=== PATIENT | female | born 1945 | race Caucasian/White ===

== ENCOUNTER → 2022-05-31 15:13 | Outpatient (BNVA) | payer MEDICARE, BC, SELFPAY | PROVIDERS: Visit Provider Nurse Practitioner Family | DX: R82.90 Unspecified abnormal findings in urine (principal); N30.00 Acute cystitis without hematuria | CPT/HCPCS: 81000 ==

== ENCOUNTER 2022-06-10 11:39 | Outpatient (CLI) | payer MEDICARE, BC, SELFPAY ==
--- NOTE | 2022-06-10 11:54 | XR_ITS ---
WS: [id number] EXAMINATION: XR sacrum coccyx min 2V [id number] REASON FOR EXAM: back pain COMPARISON: None available. ORDER DATE: 06/10/2022 12:06 PM FINDINGS: There is a sclerotic change in the mid SI joints bilaterally slightly greater on the right Hip joints are unremarkable bilaterally. XR/XR sacrum coccyx min 2V [id number] IMPRESSION: No acute abnormality.
--- NOTE | 2022-06-10 11:54 | XR_ITS ---
WS: [id number] EXAMINATION: XR hip RT 2-3V wo/w pel* [id number] REASON FOR EXAM: hip pain COMPARISON: None available. ORDER DATE: 06/10/2022 12:06 PM TECHNIQUE: Frontal internal/external rotation views of the right hip were obtained. X-RAY FINDINGS: There are no fractures or dislocations. Normal motion with internal/external rotation is present. No degenerative changes. XR/XR hip RT 2-3V wo/w pel* [id number] IMPRESSION: 1. No fractures or dislocations of the right hip. 2. Normal motion with internal/external rotation.
== END 2022-06-10 11:40 | disposition home or self-care (01) ==
LOC: RAD 11:46
PROVIDERS: PCP Family Medicine; Visit Provider Family Medicine
DX: M25.551 Pain in right hip (principal)
CPT/HCPCS: 72220; 73502; 81000; J1040

== ENCOUNTER → 2022-07-29 11:20 | Outpatient (BNVA) | payer MEDICARE, BC, SELFPAY | PROVIDERS: PCP Family Medicine; Visit Provider Family Medicine | DX: M25.551 Pain in right hip (principal); I10 Essential (primary) hypertension; E78.5 Hyperlipidemia, unspecified; M81.0 Age-related osteoporosis without current pathological fracture | CPT/HCPCS: 80053; 80061; 85025 ==

== ENCOUNTER → 2022-09-27 10:13 | Outpatient (BNVA) | payer MEDICARE, BC, SELFPAY | PROVIDERS: PCP Family Medicine; Referring Provider Family Medicine; Visit Provider Student in an Organized Health Care Education/Training Program | DX: M70.61 Trochanteric bursitis, right hip (principal) | CPT/HCPCS: 20610; 99203; J3301; J3490 ==

== ENCOUNTER → 2022-12-21 10:52 | Outpatient (BNVA) | payer MEDICARE, BC, SELFPAY | PROVIDERS: PCP Family Medicine; Visit Provider Student in an Organized Health Care Education/Training Program | DX: M70.61 Trochanteric bursitis, right hip | CPT/HCPCS: 20610; 73502; 99213; J3301; J3490 ==

== ENCOUNTER → 2023-01-27 11:17 | Outpatient (BNVA) | payer MEDICARE, BC, SELFPAY | PROVIDERS: PCP Family Medicine; Visit Provider Family Medicine | DX: R63.4 Abnormal weight loss (principal); M81.0 Age-related osteoporosis without current pathological fracture; I10 Essential (primary) hypertension; E78.5 Hyperlipidemia, unspecified; M25.551 Pain in right hip | CPT/HCPCS: 80053; 84443; 85025; 86140 ==

== ENCOUNTER → 2023-04-07 09:48 | Outpatient (BNVA) | payer MEDICARE, BC, SELFPAY | PROVIDERS: PCP Family Medicine; Visit Provider Student in an Organized Health Care Education/Training Program | DX: M46.1 Sacroiliitis, not elsewhere classified; M25.551 Pain in right hip | CPT/HCPCS: 99213 ==

== ENCOUNTER → 2023-05-10 09:21 | Outpatient (BNVA) | payer MEDICARE, BC, SELFPAY | PROVIDERS: PCP Family Medicine; Visit Provider Anesthesiology Pain Medicine | DX: M53.3 Sacrococcygeal disorders, not elsewhere classified; M25.551 Pain in right hip | CPT/HCPCS: 99204 ==

== ENCOUNTER → 2023-05-18 14:12 | Outpatient (BNVA) | payer MEDICARE, BC, SELFPAY | PROVIDERS: PCP Family Medicine; Visit Provider Anesthesiology Pain Medicine | DX: M53.3 Sacrococcygeal disorders, not elsewhere classified (principal); M54.9 Dorsalgia, unspecified | CPT/HCPCS: 20553; 20610; 27096; J1030; J3490 ==

== ENCOUNTER → 2023-06-16 11:10 | Outpatient (BNVA) | payer MEDICARE, BC, SELFPAY | PROVIDERS: PCP Family Medicine; Visit Provider Anesthesiology Pain Medicine | DX: M54.16 Radiculopathy, lumbar region; M25.551 Pain in right hip; M53.3 Sacrococcygeal disorders, not elsewhere classified | CPT/HCPCS: 73502; 99214 ==

== ENCOUNTER 2023-07-13 15:01 | Outpatient (CLI) | payer MEDICARE, BC, SELFPAY ==
--- NOTE | 2023-07-13 15:15 | MR_ITS ---
WS: [id number] MRI LUMBAR SPINE NONCONTRAST TECHNIQUE: Sagittal T1, T2 and STIR imaging. Axial T1 and T2 imaging. CLINICAL INFORMATION: M54.16 - Radiculopathy, lumbar region COMPARISON: None. FINDINGS: Mild lumbar curve. No acute compression. Grade 1 anterolisthesis L4 on L5. Tarlov cysts in the sacrum . Disc space narrowing worse at L4-L5 and L5-S1. Severe central canal stenosis L4-5. L1-L2: Mild annular bulging. Mild facet arthropathy. Spinal canal and foramen are patent. L2-L3: Mild annular bulging. Moderate facet arthropathy. Narrowing of the LEFT subarticular recess. F oramen are patent. L3-L4: Mild annular bulging. Slight impingement on the LEFT subarticular recess and LEFT L4 nerve norberto t. Mild LEFT foraminal narrowing. RIGHT foramen is patent. Moderate facet arthropathy. Small facet ef fusions. L4-L5: Grade 1 anterolisthesis. Disc bulging in combination with facet arthropathy and ligamentum fla vum hypertrophy results in severe central canal stenosis. Impingement traversing L5 nerve roots. Mild RIGHT and no significant LEFT foraminal narrowing. L5-S1: Mild disc bulging with slight contact of the traversing S1 nerve roots. Moderate to advanced f acet arthropathy. LEFT eccentric disc osteophyte complex with slight impingement far exiting LEFT L5 nerve root. Mild LEFT foraminal narrowing. Visualized pelvic bony structures: Normal. Paravertebral soft tissues: Normal. IMPRESSION: 1. Mild lumbar curve. No acute compression. 2. Grade 1 anterolisthesis L4 on L5 with severe central canal stenosis at this level. Impingement of the traversing L5 nerve roots bilaterally in the subarticular recess. Moderate facet arthropathy and ligamentum flavum hypertrophy contributes to stenosis. 3. Disc bulging L5-S1 with slight contact of the S1 nerve roots. LEFT eccentric disc osteophyte comp catherine slightly contacts the far exit LEFT L5 nerve root. 4. Slight narrowing of the LEFT L2-3 and LEFT L3-4 subarticular recess worse at LEFT L3-4. 5. Mild facet synovitis L3-L4 and L4-L5.
== END 2023-07-13 15:02 | disposition home or self-care (01) ==
LOC: RAD 15:01
PROVIDERS: PCP Family Medicine; Visit Provider Anesthesiology Pain Medicine
DX: M54.16 Radiculopathy, lumbar region (principal); M51.37 Other intervertebral disc degeneration, lumbosacral region; M48.061 Spinal stenosis, lumbar region without neurogenic claudication; M65.88 Other synovitis and tenosynovitis, other site
CPT/HCPCS: 72148

== ENCOUNTER → 2023-07-14 08:43 | Outpatient (BNVA) | payer MEDICARE, BC, SELFPAY | PROVIDERS: PCP Family Medicine; Visit Provider Anesthesiology Pain Medicine | DX: M51.17 Intervertebral disc disorders with radiculopathy, lumbosacral region; M53.3 Sacrococcygeal disorders, not elsewhere classified; M43.16 Spondylolisthesis, lumbar region | CPT/HCPCS: 99214 ==

== ENCOUNTER → 2023-07-28 11:07 | Outpatient (BNVA) | payer MEDICARE, BC, SELFPAY | PROVIDERS: PCP Family Medicine; Visit Provider Family Medicine | DX: I10 Essential (primary) hypertension (principal); E78.5 Hyperlipidemia, unspecified; R63.4 Abnormal weight loss; M25.551 Pain in right hip | CPT/HCPCS: 80053; 80061 ==

== ENCOUNTER 2024-01-23 10:30 | Outpatient (RCR) | payer MEDICARE, BC, SELFPAY | END 2024-02-18 23:59 | disposition home or self-care (01) | LOC: SPT 10:30 | PROVIDERS: Visit Provider Neurological Surgery | DX: M54.50 Low back pain, unspecified (principal) | CPT/HCPCS: 97110; 97161 ==

== ENCOUNTER → 2024-01-26 10:24 | Outpatient (BNVA) | payer MEDICARE, BC, SELFPAY | PROVIDERS: PCP Family Medicine; Visit Provider Family Medicine | DX: I10 Essential (primary) hypertension (principal); E78.5 Hyperlipidemia, unspecified; M25.551 Pain in right hip | CPT/HCPCS: 80053 ==

== ENCOUNTER 2024-02-19 06:00 | Outpatient (RCR) | payer MEDICARE, BC, SELFPAY | END 2024-03-20 23:59 | disposition home or self-care (01) | LOC: SPT 06:00 | PROVIDERS: PCP Family Medicine; Visit Provider Neurological Surgery | DX: M54.50 Low back pain, unspecified (principal) | CPT/HCPCS: 97110 ==

== ENCOUNTER → 2024-04-16 13:11 | Outpatient (BNVA) | payer MEDICARE, BC, SELFPAY | PROVIDERS: PCP Family Medicine; Visit Provider Family Medicine | DX: J06.9 Acute upper respiratory infection, unspecified (principal); U07.1 COVID-19 | CPT/HCPCS: 87426 ==

== ENCOUNTER → 2024-07-26 10:58 | Outpatient (BNVA) | payer MEDICARE, BC, SELFPAY | PROVIDERS: PCP Family Medicine; Visit Provider Family Medicine | DX: I10 Essential (primary) hypertension (principal); E78.5 Hyperlipidemia, unspecified | CPT/HCPCS: 80053; 80061; 85025 ==

== ENCOUNTER → 2024-08-10 11:39 | Outpatient (BNVA) | payer MEDICARE, BC, SELFPAY | PROVIDERS: PCP Family Medicine; Visit Provider Family Medicine | DX: L98.9 Disorder of the skin and subcutaneous tissue, unspecified (principal) | CPT/HCPCS: 88305 ==